=== PATIENT | female | born 2000 ===

== ENCOUNTER 2024-02-08 06:08 | Day surgery (SDC) | payer OTHER, SELFPAY ==
[2024-02-08 06:53] VITALS: BMI 29.3
[2024-02-08 06:54] VITALS: BP 121/81; BMI 29.3
[2024-02-08] MEDS: CELEBREX 200 MG PO (07:14)
[2024-02-08] MEDS: NORMOSOL-R 1000 IV (07:15)
[2024-02-08] MEDS: TYLENOL 1000 MG PO (07:16)
--- NOTE | 2024-02-08 08:12 | W.IMMPOSTOP ---
Surgical Immed Post Op Note
-
Primary Surgeon: Dane Mccallum MD
Assisting Surgeon: None
Pre-op Diagnosis: Anal skin tag, external hemorrhoid
Post-op Diagnosis: Anal skin tag, external hemorrhoid
Procedure Performed: Excision of anal skin tag and external hemorrhoid
Anesthesia Type: Sedation with local
Specimen / Cultures: Anal skin tag
Estimated Blood Loss: 5 mL
Complications: None
Operative Findings: Per op note
--- NOTE | 2024-02-08 08:13 | OR.RPT ---
Operative Report
Operative Report
DATE OF OPERATION: 02/08/2024
SURGEON: Dane Mccallum MD
PREOPERATIVE DIAGNOSIS: Anal skin tag, external hemorrhoid
POSTOPERATIVE DIAGNOSIS: Anal skin tag, external hemorrhoid
OPERATION: Exam under anesthesia, excision of anal skin tag and external hemorrhoid, bilateral pudendal nerve block
ASSISTANTS:
1. None
ANESTHESIA: MAC w/ local
ESTIMATED BLOOD LOSS: 5 mL
FINDINGS:
1. Anterior anal skin tag just right of the midline associated with a small external hemorrhoid; sharply excised
SPECIMENS:
1. Anal skin tag
DRAINS: None
COMPLICATIONS: None
INDICATIONS: The patient is a 23-year-old female who saw me in the office for perianal irritation associated with an anal skin tag. Nonoperative measures were initiated, but failed to improve her symptoms. Therefore, the patient was recommended to
have surgery. Due to the close proximity of a small external hemorrhoid, I elected to perform the procedure under sedation in the operating room. The operation was discussed with the patient in detail, including the risks, benefits and
alternatives. Risks described included, but not limited to bleeding, infection, urinary retention, damage to nearby structures such as the anal sphincter, fecal incontinence, anal stenosis, recurrence, and anesthetic risks. The patient understood
and agreed to proceed. The consent was signed and placed in the chart.
PROCEDURE IN DETAIL: The patient was taken to the operating room. The patient was then placed on the operating table in prone position. Sequential compression devices were placed bilaterally. Sedation was commenced without complication. Two seat
belts were secured around the legs and upper back. The buttocks were taped apart. The perineum was prepped and draped in the usual fashion. A time-out was then performed verifying the correct patient, procedure, operative site, positioning, and
special equipment.
Local anesthesia used was a mixture of 60 mL of 0.25% Marcaine without epinephrine (with epinephrine was on backorder) and 0.6 mg of dexamethasone. 40 mL was injected perianally at the beginning of the case. The anorectal exam was performed
assessing all four quadrants of the anal canal using Hill-Rose retractors in progressively increasing size. Small anal papillas were noted in the left lateral quadrant, no concerning internal hemorrhoid. Small to moderate-sized anal skin tag
in the anterior quadrant, just to the right of midline, with a small associated external hemorrhoid, extending towards the anal verge by about 1 cm. No other concerning internal hemorrhoids or anal canal pathology appreciated. Rectal mucosal
visualized and appeared normal.
I proceeded with excision of the external anal skin tag with the small external hemorrhoid. I grasped the skin tag with an Allis and elevated it away from the sphincter. Using Metzenbaum scissors, I sharply excised the skin tag and external
hemorrhoid, taking care to avoid injury to the underlying external sphincter. The specimen was passed off for pathology. The pedicle of the external hemorrhoid was ligated with a figure of eight 2-0 Vicryl stitch. Hemostasis of the wound bed was
achieved electrocautery. The wound was left open to heal by secondary intention in order to decrease the risk of infection. The remaining 20 mL of local were injected. 5 mL was injected bilaterally for a pudendal nerve block. 10 mL was injected
around the surgical site and perianally. Hemostasis was reassessed once more using the small Hill-Rose and was confirmed. Surgicel was placed in the operative site prophylactically. A pea-sized amount of Dibucaine was then applied to the
external portion of the wound.
At this point, the procedure was complete. All needle, sponge and instrument counts were correct. The patient tolerated the procedure well and was transferred to the recovery room in stable condition with gauze dressing in place secured with silk
tape.
DICTATED BY: Dane Mccallum MD
[2024-02-08 08:15] VITALS: BP 105/69
[2024-02-08 08:30] VITALS: BP 109/67
[2024-02-08 08:45] VITALS: BP 92/63
[2024-02-08] MEDS: ROXICODONE 5 MG PO (08:57)
[2024-02-08 09:00] VITALS: BP 111/76
== END 2024-02-08 09:09 | disposition home or self-care (01) ==
LOC: SDS 06:08
PROVIDERS: ATTENDING PHYSICIAN Surgery
DX: K62.0 Anal polyp (principal); K64.4 Residual hemorrhoidal skin tags
CPT/HCPCS: 46220; 88304